=== PATIENT | female | born 1985 | race Caucasian/White ===

== ENCOUNTER 2020-12-16 14:33 | Emergency (ER) | payer BC, SELFPAY ==
[2020-12-16 14:34] VITALS: BP 106/60; PULSE 55; RESP 16; TEMP 36.4; O2SAT 100; BMI 24.6
--- NOTE | 2020-12-16 15:00 | US_ITS ---
STUDY: FIRST TRIMESTER OBSTETRICAL ULTRASOUND REASON FOR EXAM: Female, 35 years old left pelvic pain area LMP: 11/04/2020 TECHNIQUE: Transvaginal TECHNICAL QUALITY: Adequate. PRIOR ULTRASOUND: None. FINDINGS: There is visualization of a single gestational sac in a normal intrauterine position. The mean sac diameter (MSD) measures 15 mm, indicating an estimated gestational age (EGA) of 6 weeks, 2 days. The gestational sac shape is within normal limits. There is a visualized yolk sac. The yolk sac measures 4 mm. The placenta is non-visualized. There is no demonstrated embryo ( pole).. The estimated gestation age (EGA) by LMP is 6 weeks, 0 days. The estimated date of delivery (EMORY) by LMP is 08/11/2021. The estimated gestation age (EGA) by US is 6 weeks, 2 days. The estimated date of delivery (EMORY) by US is 08/09/2021. The uterus measures 9.5 x 5.2 x 6.6. There is no demonstrated uterine fibroid. The cervix is closed. The right ovary measures 2.2 x 1.3 x 1.8 cm. There is no right ovarian cyst. There is no visualized right adnexal mass or complex lesion. The left ovary measures 4.1 x 1.9 x 3.0 cm. 2 cm collapsing theca lutein cyst of the left ovary. There is no visualized left adnexal mass or complex lesion. There is no fluid in the cul de sac. US/Transvaginal w/Preg US IMPRESSION: Intrauterine gestational sac of 6 weeks 2 days with yolk sac but no identifiable pole. Differential diagnosis includes an incomplete or an embryonic (blighted ovum). Correlation with serial beta-hCG measurements is recommended. Electronically Signed: Ho Chu MD at 16:29 EDT Tel , Service support ,
--- NOTE | 2020-12-16 15:02 | EDS_ITS ---
HPI History of Present Illness Chief Complaint: Abd Pain Informant: patient and spouse/S.O. Narrative Narrative: Farhana with left pelvic pain. It started early this morning. She flew up here from [place] and it was still continuing. She has not had a bowel movement for about 5 days but that has been a common occurrence when . She had this with other pregnancies. She is in approximately 6 weeks by dates. She has been doing well. She has been on vitamins for a while. These are not new or different. She denies fevers chills sweats. No nausea vomiting. She feels some urge to move her bowels. She stopped and a laxative but has not had time for that to take effect. She is here because she would like ultrasound looking for ectopic. She had 1 prior miscarriage and one delivery. Her is an interventional radiologist. They really do not want a work-up. They do not want exam or blood work. I also discussed the options of doing ultrasound of her kidney and back because there is a family history of kidney stones. They want not to do this. PFSH PFSH Home Medications oxycodone-acetaminophen [Percocet] 1 tab PO Q6H PRN 1 Days #4 tab 12/16/20 [Rx Last Taken Unknown] Allergy/AdvReac Type Severity Reaction Status Date / Time No Known Allergies Allergy Verified 12/16/20 14:34 Social History Smoking Status: Never smoker ROS ROS ED Constitutional Constitutional ED: Denies chills or fever(s) ENT ENT ED: Denies sore throat Cardiovascular Cardiovascular: Denies palpitations Respiratory/Chest Respiratory/Chest: Denies cough Gastrointestinal Gastrointestinal: Reports abdominal pain and constipation; Denies diarrhea, nausea or vomiting Genitourinary Genitourinary ED: Reports other Details: See history of present illness. No discharge and no bleeding. ; Denies dysuria, hematuria or urinary frequency Musculoskeletal Musculoskeletal: Denies back pain Integumentary Denies rash Neurologic Neurologic: Denies headache(s) Allergic/Immunologic Allergic/Immunologic ED: Denies urticaria EXAM Physical Exam Const Vital Signs: 12/16/20 14:34 Temperature 97.6 F L Temperature Source Temporal Pulse Rate 55 L Respiratory Rate 16 Blood Pressure 106/60 Blood Pressure Mean 75 Pulse Ox 100 Oxygen Delivery Method Room Air Positive well nourished and well developed General Appearance ED: well developed and NAD HEENT Negative for trauma Eyes EOMs intact bilaterally Neck supple Chest Wall inspection of chest normal Resp normal respiratory effort and clear to auscultation bilaterally Auscultation: Negative for rales, rhonchi or wheezes Cardio regular rate and regular rhythm GI normal to inspection, nondistended, normoactive bowel sounds GI Narrative: Patient does have some mild tenderness with palpation of the low left quadrant area. No rebound. There is no CVA tenderness. There is no referred tenderness with palpation in any other area of the abdomen. I feel no mass. Palpation: soft Back/Spine no CVA tenderness Extremity normal to inspection Neuro Sensorium / Orientation: alert Psych mental status grossly normal Skin no rashes or lesions noted MDM MDM MDM Narrative Medical decision making narrative: Ultrasound showed a gestational sac to 6 weeks 2 days but no anterior pole. This still may be early to tell but this could also be blighted ovum. This could lead to miscarriage. She is still not having any bleeding. There was a luteal cyst on the left. I talk with the patient. She is feeling better. She will try some magnesium citrate [id number]. They requested a few pain pills as they are going to be flying back on Saturday. I explained I can do this for comfort but if she is having significant pain I would rather have her come back. I again offered further work-up including blood work and quantitative beta-hCG. They would like to go home. Her is a physician. Is very clearly understand these risks benefits. I did do an online prescribing report that showed no narcotics. Radiography Diagnostic Testing: Radiology Impression Obstetrics Ultrasound 12/16/20 15:00 IMPRESSION: Intrauterine gestational sac of 6 weeks 2 days with yolk sac but no identifiable pole. Differential diagnosis includes an incomplete or an embryonic (blighted ovum). Correlation with serial beta-hCG measurements is recommended. Electronically Signed: Ho Chu MD at 16:29 EDT Tel , Service support , Discharge Plan Triage Chief Complaint: Abd Pain ED Provider: Lincoln Whitaker Dx/Rx/DC Orders Clinical Impression: Pelvic pain affecting , Constipation Instructions: ED Abdominal Pain, Early Prescriptions: New oxycodone-acetaminophen [Percocet] 5-325 mg tablet 1 tab PO Q6H PRN (Reason: pain) 1 Days Qty: 4 RF: 0 Primary Care Provider: Care Physician,No Primary Referrals: Jay Boucher MD [STAFF PHYSICIAN] - 1-2 Days if not improving Care Physician,No Primary [Primary Care Provider] - Disposition Disposition: Home, Self Care
[2020-12-16] MEDS: oxyCODONE 5 MG Tablet PO (15:12)
[2020-12-16 17:16] VITALS: BP 108/63; PULSE 67; RESP 18; O2SAT 98
== END 2020-12-16 17:17 | disposition home or self-care (01) ==
PROVIDERS: Emergency Provider Emergency Medicine
DX: O26.891 Other specified pregnancy related conditions, first trimester (principal); O99.611 Diseases of the digestive system complicating pregnancy, first trimester; R10.2 Pelvic and perineal pain; K59.00 Constipation, unspecified; Z3A.01 Less than 8 weeks gestation of pregnancy
CPT/HCPCS: 76817; 99283